=== PATIENT | female | born 1990 | race American Indian/Alaskan Native ===

== ENCOUNTER 2022-03-29 13:53 | Outpatient (CLI) | payer OTHER ==
[~2022-03-29 13:53] MED LIST: TYLENOL-CODEINE1 TAB PO
== END 2022-03-29 14:25 | disposition home or self-care (01) ==
LOC: NST 13:53
PROVIDERS: ATTEND Obstetrics & Gynecology
DX: Z34.83 Encounter for supervision of other normal pregnancy, third trimester (principal)

== ENCOUNTER 2022-04-06 10:03 | Inpatient (IN) | payer OTHER ==
[~2022-04-06] VITALS: Ht 167.6 cm; Wt 69.9 kg
[2022-04-06] MEDS ORDERED: LEVO-T125 MCG PO (10:40)
[2022-04-06] MEDS ORDERED: FLECAINIDE ACET50 MG PO (10:41)
== END 2022-04-08 13:11 | disposition home or self-care (01) | DRG 807 ==
LOC: OB/GYN 10:03 → LDR 10:03 → OB/GYN 18:37
PROVIDERS: ADMIT Obstetrics & Gynecology; ATTEND Obstetrics & Gynecology
PROC: 10E0XZZ Delivery of Products of Conception, External Approach (ICD-10-PCS; principal; 2022-04-06)
PROC: 4A1HXCZ Monitoring of Products of Conception, Cardiac Rate, External Approach (ICD-10-PCS; 2022-04-06)
DX: O80 Encounter for full-term uncomplicated delivery (principal); Z37.0 Single live birth; Z3A.38 38 weeks gestation of pregnancy; Z20.822 Contact with and (suspected) exposure to COVID-19